=== PATIENT | female | born 1970 | race Caucasian/White ===

== ENCOUNTER 2019-06-25 14:21 | Outpatient (CLI) | payer BC, SELFPAY ==
--- NOTE | ~2019-06-25 | XR_ITS ---
XR shoulder RT min 2V DATE: 06/25/2019 14:51 INDICATION: Right shoulder pain TECHNIQUE: 4 views COMPARISON: None FINDINGS: No fracture or dislocation, periosteal reaction or bone destruction or abnormal soft tissue calcification. IMPRESSION: Negative Reviewed, dictated and finalized at location A. IMPRESSION: Negative
== END 2019-06-25 14:22 | disposition home or self-care (01) ==
PROVIDERS: PCP Internal Medicine; Visit Provider Physician Assistant
DX: M25.511 Pain in right shoulder (principal)
CPT/HCPCS: 73030

== ENCOUNTER 2019-08-18 08:00 | Outpatient (RCR) | payer BC, SELFPAY ==
--- NOTE | 2019-07-07 10:55 | PTOPEVAL ---
Thank you for referring John Proctor to [facility]. Please review, sign, date and return this plan of care AYAN. Pt referred to therapy due to right shoulder pain and limitations. She demonstrates decreased shoulder motion, shoulder and scapular weakness, and limitations with daily activities. She requires additional skilled PT services to improve UE impairments. Recommend additional PT 2x/wk x 5 wk to achieve therapy goals. I agree with and certify that the following plan of care is medically necessary. Referring Physician Date Attending Provider: Wilmer Chamberlain MD *PT Outpatient Evaluation Start: 07/07/19 09:43 Freq: Status: Active Protocol: Document 07/07/19 09:43 ALBERT (Rec: 07/07/19 10:08 ALBERT [id number]) Therapy Assessment Status Assessment Status Assessment Status Evaluation Outpatient Past Medical History Past Medical History Source of Past Medical History Patient Cardiovascular History Hx Hypertension Yes Evaluation Information Problem Diagnosis subacromial impingement right shoulder Onset 2 years Cause unknown Subjective Information She started having shoulder Query Text:As Reported By Patient/ pain 2 years ago, but improved Family without treatment. She started to have limited range 2 months ago. MD thinks it is tendonities. She reports limitation with typing, reaching in all directions. States the right arm is weaker than the left. She received an injection on with improve pain and tolerance with activities. She now report increased elbow pain. She has to perform typing and lifting at work. Amount of weight varies up to 50#. Prior to injection she had problems with donning/ doffing clothes. She prefers to sleep in her right shoulder or stomach. She wakes with soreness/pain. She does not use a pillow with the right UE. She does not perform a regular fitness program. Does not use ice, heat or medication at home. Diagnostic Tests X-Rays For This Problem Yes: negative Prev
--- NOTE | 2019-08-18 08:47 | PTOPEVAL ---
Thank you for referring John Proctor to [facility]. Please review, sign, date and return this plan of care AYAN. John has received 9 therapy visits to address UE impairments. She is able to perform all daily activities without limitations. She has normal shoulder range and improved UE strength. She performs her HEP indep. All therapy goals have been achieved. DC skilled therapy at this time. I agree with and certify that the following plan of care is medically necessary. Referring Physician Date Attending Provider: Wilmer Chamberlain MD PT re-assessment/Discharge Note *PT Outpatient Evaluation Start: 07/07/19 09:43 Freq: Status: Active Protocol: Document 08/18/19 07:59 CAP (Rec: 08/18/19 08:21 CAP [email or web address]) Therapy Assessment Status Assessment Status Assessment Status Re-evaluation Outpatient Past Medical History Past Medical History Source of Past Medical History Patient Cardiovascular History Hx Hypertension Yes Evaluation Information Problem Diagnosis subacromial impingement right shoulder Onset 2 years Cause unknown Subjective Information She denies any limitations Query Text:As Reported By Patient/ with UE use for typing, Family reaching in all directions or carrying objects with UE. Denies problems with sleeping, household activities, or sleeping. Pain Assessment Timing of Pain Assessment Timing of Pain Assessment Re-assessment Pain Scale Pain Scale Used Numeric (1 - 10) Self Report Pain Assessment Right Shoulder(s) Reported Pain Level 0 Greatest Pain Intensity 0 Pain Score Pain Score 0: Self Report Upper Extremity Range of Motion Scapular/ Shoulder Range of Motion Left Shoulder Flexion - Active 180 Shoulder Extension - Active 55 Shoulder Abduction - Active 180 Shoulder Medial Rotation - Passive 90 Shoulder Medial Rotation - Active T6 Query Text:Reach Behind the Back Shoulder Lateral Rotation - Active 90 Shoulder Lateral Rotation - Active T2 Query Text:Reach Behind the Head Right Shoulder Flexion - Active 180 Shoulder Extension - Active 50 Shoulder Abduction - Active 180 Shoulder Medial Rotation - Active 90 Shoulder Medial Rotation - Active T7 Query Text:Reach Behind the Back Shoulder Lateral Rotation - Active 90 Shoulder Lateral Rotation - Active T2 Query Text:Reach Behind the Head Upper Extremity Muscle Strength Testing Scapular/Shoulder Left Shoulder Elevation - Upper Trapezius 5 Normal Scapular Retraction - Middle Trapezius 3+ Fair + Scapular Retraction - Lower Trapezius 3 Fair Shoulder Flexion Stren
== END 2019-08-19 13:09 | disposition home or self-care (01) ==
LOC: ANHPT 08:00
PROVIDERS: PCP Internal Medicine; Visit Provider Orthopaedic Surgery
DX: M75.81 Other shoulder lesions, right shoulder (principal)
CPT/HCPCS: 97035; 97110; 97140; 97161

== ENCOUNTER 2020-02-04 14:34 | Outpatient (CLI) | payer BC, SELFPAY ==
--- NOTE | ~2020-02-04 | MM_ITS ---
EXAMINATION: MM screening jonathan BI w ysoi HISTORY: Screening TECHNIQUE: Craniocaudal and mediolateral oblique 3-D tomosynthesis images were obtained and synthetic 2-D images were generated. CAD analysis was submitted and interpreted. COMPARISON: Comparison to multiple prior studies sequentially, with oldest reviewed study dated 12/06. BREAST PARENCHYMAL COMPOSITION: There are scattered areas of fibroglandular density. FINDINGS: There are developing asymmetries in the lower inner quadrant of the right breast. The left breast is stable without evidence for malignancy. IMPRESSION: 1. Developing right breast asymmetries. 2. Additional mammographic views and possible breast ultrasound are recommended. BI-RADS Category 0: Incomplete: Needs additional imaging evaluation. Reviewed, dictated and finalized at location A. S CURVATURE GAUGER IMPRESSION: 1. Developing right breast asymmetries. 2. Additional mammographic views and possible breast ultrasound are recommended . BI-RADS Category 0: Incomplete: Needs additional imaging evaluation.
== END 2020-02-04 14:35 | disposition home or self-care (01) ==
PROVIDERS: PCP Physician Assistant; Visit Provider Obstetrics & Gynecology
DX: Z12.31 Encounter for screening mammogram for malignant neoplasm of breast (principal); R92.8 Other abnormal and inconclusive findings on diagnostic imaging of breast
CPT/HCPCS: 77063; 77067

== ENCOUNTER 2020-03-04 12:17 | Outpatient (CLI) | payer BC, SELFPAY ==
--- NOTE | ~2020-03-04 | MMUS_ITS ---
EXAMINATION: MM diagnostic mammo unilat RT, US breast RT limited HISTORY: Follow-up right breast asymmetry TECHNIQUE: Additional 3-D tomosynthesis images of the right breast were performed and synthetic 2-D i mages were generated. CAD analysis was submitted and interpreted. High resolution Limited right breas t ultrasound was performed. COMPARISON: Comparison to multiple prior studies sequentially, with oldest reviewed study dated 03/2013. BREAST PARENCHYMAL COMPOSITION: Breast composed of scattered areas of fibroglandular density FINDINGS: MAMMOGRAPHIC FINDINGS: Focal asymmetry compresses with spot views, compatible with superimposed fibroglandular tissue. There are no suspicious masses, calcifications or architectural distortion in the right breast to suggest malignancy. ULTRASOUND: Limited right breast ultrasound: Normal heterogeneous echotexture without focal solid or cystic mass. IMPRESSION: 1. No evidence for malignancy in the right breast. 2. Routine yearly screening mammogram and regular clinical breast examination are recommended. BI-RADS Category 1: Negative Reviewed, dictated and finalized at location A. N RESOURCES SERVICES SPECIALIST IMPRESSION: 1. No evidence for malignancy in the right breast. 2. Routine yearly screening mammogram and regular clinical breast examination a re recommended. BI-RADS Category 1: Negative
== END 2020-03-04 12:18 | disposition home or self-care (01) ==
LOC: ANHIMG 12:19
PROVIDERS: PCP Physician Assistant; Visit Provider Obstetrics & Gynecology
DX: R92.8 Other abnormal and inconclusive findings on diagnostic imaging of breast (principal)
CPT/HCPCS: 76642; 77065

== ENCOUNTER → 2020-03-16 03:40 | Outpatient (CLI) | payer BC, SELFPAY ==
[2020-03-17 18:18] LABS: SARS-CoV-2 RNA PCR Negative
== END ==
PROVIDERS: Internal Medicine Gastroenterology; PCP Physician Assistant; Visit Provider Obstetrics & Gynecology
DX: Z01.812 Encounter for preprocedural laboratory examination (principal); Z20.822 Contact with and (suspected) exposure to COVID-19
CPT/HCPCS: C9803; U0003; U0005

== ENCOUNTER → 2020-03-16 09:14 | Outpatient (CLI) | payer BC, SELFPAY ==
--- NOTE | ~2020-03-16 | MR_ITS ---
EXAMINATION: MR shoulder RT wo con DATE: 03/16/2020 09:55 INDICATION: Right shoulder pain TECHNIQUE: Magnetic resonance imaging (MRI) of the right shoulder was performed without intravenous c ontrast. Sequences included axial PD-weighted FS FSE, coronal oblique PD-weighted FS FSE, coronal obl ique T2-weighted FS FSE, sagittal PD-weighted FS FSE, and sagittal T1-weighted SE. COMPARISON: None. FINDINGS: Coracoacromial arch: The acromion undersurface is curved in morphology (type II). The coracoacromial ligament is normal. M ild acromioclavicular osteoarthritis. Rotator cuff: Mild supraspinatus and infraspinatus tendinopathy. Partial-thickness intrasubstance tear along the ju nction of the superior and middle facet footplates of the conjoined portion of the tendons. The tear measures approximately 8 mm AP and involves between 1/2-2/3 of the tendon thickness. The teres minor tendon is normal. Mild subscapularis tendinopathy without discrete tear. Normal rotator cuff muscle b ulk and signal. Biceps tendon, glenoid labrum and glenohumeral cartilage: Long head of the biceps tendon is normal. There is a tear of the 10:30-12:00 position of the posterio r superior glenoid labrum. Glenohumeral cartilage is normal. Fluid: Minimal glenohumeral joint effusion at the axillary recess with proportional extension of a very smal l amount of fluid along the long head biceps tendon sheath. No loose osteochondral bodies. Small amou nt of fluid in the subacromial/subdeltoid bursa consistent with mild bursitis. Bones: Is increased proportion of red marrow reexpansion. Marrow signal is otherwise unremarkable with no fr acture or pathologic marrow replacing process. IMPRESSION: 1. Small moderate severity partial-thickness intrasubstance tear along the greater tuberosity footpla te of the conjoined portion of the supraspinatus and infraspinatus tendons. 2. SLAP tear at the posterior superior glenoid labrum. 3. Mild subacromial/subdeltoid bursitis. Line 4. Mild acromioclavicular osteoarthritis. Reviewed, dictated and finalized at location A. INTMENT SCHEDULER IMPRESSION: 1. Small moderate severity partial-thickness intrasubstance tear along the grea ter tuberosity footplate of the conjoined portion of the supraspinatus and infr aspinatus tendons. 2. SLAP tear at the posterior superior glenoid labrum. 3. Mild subacromial/subdeltoid bursitis. Line 4. Mild acromioclavicular osteoarthritis.
== END ==
PROVIDERS: PCP Internal Medicine; Visit Provider Orthopaedic Surgery
DX: M19.011 Primary osteoarthritis, right shoulder (principal); M75.51 Bursitis of right shoulder; S43.431A Superior glenoid labrum lesion of right shoulder, initial encounter; X58.XXXA Exposure to other specified factors, initial encounter
CPT/HCPCS: 73221

== ENCOUNTER 2020-03-17 08:03 | Outpatient (CLI) | payer BC, SELFPAY ==
--- NOTE | 2020-03-17 08:04 | ECG_ITS ---
Measurements Intervals [place] Rate: 71 P: -5 GA: 142 QRS: 3 QRSD: 82 T: 1 QT: 372 QTc: 406 Interpretive Statements SINUS RHYTHM INCOMPLETE RIGHT BUNDLE BRANCH BLOCK DELAYED PRECORDIAL R/S TRANSITION LOW QRS VOLTAGE IN PRECORDIAL LEADS BORDERLINE T WAVE ABNORMALITY- ANT/INF LEADS BASELINE ARTIFACT- I, II, III, AVR, AVF, V3 BORDERLINE ECG Electronically Signed On 03-17-2020 8:25:07 [employer] by Maurizio Mcfadden D.O.
[2020-03-17 08:26] LABS: Hematocrit 35.8 % (37.0-47.0); Hemoglobin 10.9 g/dL (12.0-15.0)
== END 2020-03-17 08:04 | disposition home or self-care (01) ==
LOC: ANHSURGERY 08:04
PROVIDERS: Anesthesiology; PCP Internal Medicine; Visit Provider Obstetrics & Gynecology
DX: D64.9 Anemia, unspecified (principal); Z53.31 Laparoscopic surgical procedure converted to open procedure; I10 Essential (primary) hypertension; Z01.818 Encounter for other preprocedural examination; I45.10 Unspecified right bundle-branch block
CPT/HCPCS: 36415; 85014; 85018; 86850; 86900; 86901; 93005

== ENCOUNTER 2020-03-19 01:21 | Day surgery (SDC) | payer BC, SELFPAY ==
[2020-03-15 18:49] VITALS: BMI 32.7
--- NOTE | 2020-03-16 14:55 | PM.IMHP ---
H&P: HPI History of Present Illness Date/Time: 03/16/20 14:55 Chief Complaint: r ov mass Narrative: John Proctor is a 49 year old female status post 2 hysterectomy and bilateral tubal ligation admitted for laparoscopic RSO risks of is reviewed and for Review of Systems Review of Systems: All systems reviewed & are unremarkable except as noted in HPI and below PMFSH Past Medical History Medical History Hypertension Surgical History Surgical History H/O tubal ligation H/O: hysterectomy History of cholecystectomy Family History Family History Grandparent Carcinoma of colon Family history of elevated blood lipids Mother Diabetes mellitus Sibling Patient's brother is in good health Father Family history of cardiovascular disease Social History Social History Smoking status: Never smoker Second hand tobacco smoke exposure: No Alcohol intake: current Substance use: never Substance use type: does not use Additional living arrangements comments: spouse and children Additional occupation/education comments: [employer] Gender identity (if verbalized by the patient): Female Spiritual care concerns: No Meds Home Medications and Allergies Home Medications Medication Instructions Recorded Confirmed Type azelastine 0.15 % (205.5 mcg) 2 spray NASAL DAILY PRN 06/24/19 03/15/20 History nasal spray fexofenadine-pseudoephedrine ER 1 tablet PO DAILY PRN 06/24/19 03/15/20 History 180 mg-240 mg tablet,ext.release 24 hr fluticasone propionate 50 2 spray NASAL DAILY PRN 06/24/19 03/15/20 History mcg/actuation nasal spray,suspension nebivolol 10 mg tablet See Rx Instructions .ROUTE 12/16/19 03/15/20 Rx .COMPLEX #90 tablet ferrous sulfate 325 mg (65 mg 325 mg PO BID #60 tablet 01/26/20 03/15/20 Rx iron) tablet sodium,potassium,mag sulfates See Rx Instructions .ROUTE 02/27/20 03/03/20 Rx [Suprep Bowel Prep Kit] .COMPLEX #1 ml Allergies Allergy/AdvReac Type Severity Reaction Status Date / Time No Known Allergies Allergy Verified 02/10/20 09:05 Exam Const: General: no acute distress Eyes: General: appearance normal, both eyes and all related structures Neck: Neck: supple and no JVD Thyroid: thyroid normal Resp: Effort & Inspection: normal respiratory effort Auscultation: clear to auscultation bilaterally Cardio: Rate: regular rate Rhythm: regular rhythm GI: Inspection: non-distended GI Palp: Yes Soft to palpation, No Tenderness to palpation present (GI) and No Guarding due to palpation present (GI) Auscultation: normal bowel sounds : General: Yes bladder normal to inspection Speculum Exam - Vagina: normal appearance of the vagina Speculum Exam - Cervix: Cervix absent Bimanual exam- vagina & uterus: uterus absent Bimanual Exam- Adnexa, other: Adnexal mass present on the right tender Skin: General skin exam: no rashes or lesions noted Extrem: General: normal to inspection and no edema Psych: Mental Status: mental status grossly normal Affect: normal affect Assessment and Plan Additional Plan impression: Complex right ovarian cyst Plan: Laparoscopic right salpingo-oophorectomy
[2020-03-19] VITALS (9 sets, daily range): BP systolic 119–132; BP diastolic 77–85; PULSE 70–83; RESP 15–18; TEMP 36.2–36.4; O2SAT 91–100; BMI 32.1
--- NOTE | 2020-03-19 06:22 | WPDHPUPDATE1 ---
History and Physical Update Update Date/Time: 03/19/20 06:22 History and Physical has been reviewed, including an updated exam of the patient. There are NO changes in the patient's condition. Risks, benefits, and alternatives have been discussed and questions answered. Patient agrees to proceed with procedure.
[2020-03-19] MEDS: LACTATED RINGERS 1,000 ML 30 ML IV CONT ×2 (10:03→13:28)
[2020-03-19] MEDS: ACETAMINOPHEN 500 MG TABLET 1000 MG PO (10:05)
[2020-03-19] MEDS: KETOROLAC 15 MG/ML VIAL (*BKC) IV PUSH (10:05)
--- NOTE | 2020-03-19 10:53 | WPDANESEPPF ---
Anes - Initial Pre Proc Eval Procedure: Operation Date: 03/19/20 11:30 Proposed Procedures p Laparoscopic Right Salpingo Oophorectomy - Tylor Stauffer MD Date/Time: 03/19/20 10:53 Surgeon: Tylor Stauffer MD Pre Op Diagnosis: right ovarian cyst, pelvic pain Patient Data Age: 49 Gender: F Height: 5 ft 4 in Weight: 85 kg Last Vital Signs Temp 97.5 F L 03/19/20 10:11 Pulse 71 03/19/20 10:11 Resp 18 03/19/20 10:11 BP 122/81 03/19/20 10:11 Pulse Ox 100 03/19/20 10:11 Allergies Allergy/AdvReac Type Severity Reaction Status Date / Time No Known Allergies Allergy Verified 03/19/20 09:52 Home Medications Medication Instructions Recorded Confirmed Type azelastine 0.15 % (205.5 mcg) 2 spray NASAL DAILY PRN 06/24/19 03/19/20 History nasal spray fexofenadine-pseudoephedrine ER 1 tablet PO DAILY PRN 06/24/19 03/19/20 History 180 mg-240 mg tablet,ext.release 24 hr fluticasone propionate 50 2 spray NASAL DAILY PRN 06/24/19 03/19/20 History mcg/actuation nasal spray,suspension nebivolol 10 mg tablet See Rx Instructions .ROUTE 12/16/19 03/19/20 Rx .COMPLEX #90 tablet ferrous sulfate 325 mg (65 mg 325 mg PO BID #60 tablet 01/26/20 03/19/20 Rx iron) tablet sodium,potassium,mag sulfates See Rx Instructions .ROUTE 02/27/20 03/03/20 Rx [Suprep Bowel Prep Kit] .COMPLEX #1 ml Patient hx anesthesia problems: none Family hx anesthesia problems: none PMFSH Past Medical History Medical History (Updated 03/19/20 @ 10:53 by Marvel Zaman MD) Anemia Hypertension Migraine Surgical History Surgical History H/O tubal ligation H/O: hysterectomy History of cholecystectomy Family History Family History Grandparent Carcinoma of colon Family history of elevated blood lipids Mother Diabetes mellitus Sibling Patient's brother is in good health Father Family history of cardiovascular disease Social History Social History Smoking status: Never smoker Second hand tobacco smoke exposure: No Alcohol intake: current Substance use: never Substance use type: does not use Living arrangements: with family Additional living arrangements comments: spouse and children Additional occupation/education comments: [employer] Gender identity (if verbalized by the patient): Female Sexual Orientation (if Verbalized by the Patient): Straight or Heterosexual Spiritual care concerns: No Anes - Eval Final PreProcedure Day of Procedure 03/19/20 10:53 Patient weight: obese Heart: regular rate and rhythm Lungs: clear to auscultation Airway: Mallampati scale class III Neurological: alert and oriented Last oral intake: >/= 8 hours ASA classification: III Emergent: no Anesthetic plan: proceed Anesthesia type and monitoring: general ETT and standard monitoring Informed Consent: The patient's anesthetic plan and its attendant risks and benefits were discussed with the patient/family/POA. Questions were solicited and answers provided to the satisfaction of the patient/family/POA.
--- NOTE | 2020-03-19 11:39 | SUR.PREOP ---
Discussed delay with patient. Up to bathroom.
--- NOTE | 2020-03-19 13:17 | PM.PROC ---
Procedure Note - Detailed Date of procedure: 03/19/20 Pre-op diagnosis: right ovarian cyst, pelvic pain Surgeon: Tylor Stauffer MD Postop diagnosis: Right ovarian cyst/pelvic pain/endometriosis Procedure: Laparoscopic RSO/destruction of endometriosis/lysis of adhesions Anesthesia: General endotracheal EBL: 25cc Complications: None Findings: Absent uterus. Normal-appearing left ovary along. Moderate size right ovarian cyst. Multiple areas of powder burn endometriosis are Description procedure: The patient was prepped and draped in the sterile fashion placed in the dorsal lithotomy position. Under excellent general trach anesthesia weighted speculum placed posterior fornix vagina. Sponge stick was placed in the bladder drained of clear urine weighted speculum was removed and the gloves were changed. A supraumbilical incision made the Veress needle passed in the abdomen. The abdomen was filled with CO2 gas to 15mm. A 5mm trocar advanced under direct visualization assuring no injury. The patient placed in Trendelenburg and a suprapubic incision made. The 5mm trocar advanced under direct visualization. The right lower quadrant incision made and at 10mm trocar advanced under direct visualization assuring no injury. The above findings were seen. The adhesions along the vaginal cuff were sharply dissected using Endo Allen. Multiple areas of endometriosis were seen and using 35 w per 2nd monopolar cautery each was touched and burned after photo documentation of a taken. The infundibulopelvic on the right was skeletonized. This was clamped, burned, cut with the LigaSure. This was placed in an Endo-Catch and removed through the right quadrant. Irrigation undertaken until clear and blood loss was estimated 25cc. All pedicles appeared hemostatic. The lower sites removed. The gas removed from the abdomen. The incisions closed with 4 Monocryl and glue. The patient was awakened. All sponge, needle, instrument counts were correct. There were no immediate complications
[2020-03-19] MEDS: fentaNYL CITRATE INJ (*CRX) 100 MCG/2 ML VIAL 25 MCG IV PUSH ×4 (13:46→14:18)
[2020-03-19] MEDS: oxyCODONE HCL (*CRX) 5 MG TAB IR PO (14:55)
== END 2020-03-19 15:30 | disposition home or self-care (01) ==
PROVIDERS: PCP Internal Medicine; Visit Provider Obstetrics & Gynecology
PROC: (CPT 49320; principal; 2020-03-19 11:30)
DX: N83.01 Follicular cyst of right ovary (principal); R10.2 Pelvic and perineal pain; N80.3 Endometriosis of pelvic peritoneum; N73.6 Female pelvic peritoneal adhesions (postinfective); D64.9 Anemia, unspecified; I10 Essential (primary) hypertension; E66.9 Obesity, unspecified; Z68.32 Body mass index [BMI] 32.0-32.9, adult
CPT/HCPCS: 58661; 58662; 88305; A9270; J0330; J1100; J1885; J2250; J2405; J2704; J3010; J7030; J7120

== ENCOUNTER → 2020-03-30 03:25 | Outpatient (CLI) | payer BC, SELFPAY ==
[2020-03-30 20:35] LABS: SARS-CoV-2 RNA PCR Negative
== END ==
PROVIDERS: Obstetrics & Gynecology; PCP Internal Medicine; Visit Provider Internal Medicine Gastroenterology
DX: Z01.812 Encounter for preprocedural laboratory examination (principal); Z20.822 Contact with and (suspected) exposure to COVID-19
CPT/HCPCS: C9803; U0003; U0005

== ENCOUNTER 2020-04-02 01:12 | Day surgery (SDC) | payer BC, SELFPAY ==
[2020-03-03 15:11] VITALS: BMI 33.3
--- NOTE | 2020-04-01 09:45 | WPDANESEPPF ---
Anes - Initial Pre Proc Eval Procedure: Operation Date: 04/02/20 09:00 Proposed Procedures p Esophagogastroduodenoscopy & Colonoscopy - Ronald Benton MD Date/Time: 04/01/20 09:45 Surgeon: Ronald Benton MD Pre Op Diagnosis: anemia Patient Data Age: 49 Gender: F Height: 1.63 m Weight: 88 kg Allergies Allergy/AdvReac Type Severity Reaction Status Date / Time No Known Allergies Allergy Verified 04/02/20 07:43 Home Medications Medication Instructions Recorded Confirmed Type azelastine 0.15 % (205.5 mcg) 2 spray NASAL DAILY PRN 06/24/19 03/23/20 History nasal spray fexofenadine-pseudoephedrine ER 1 tablet PO DAILY PRN 06/24/19 03/23/20 History 180 mg-240 mg tablet,ext.release 24 hr fluticasone propionate 50 2 spray NASAL DAILY PRN 06/24/19 03/23/20 History mcg/actuation nasal spray,suspension nebivolol 10 mg tablet See Rx Instructions .ROUTE 12/16/19 04/02/20 Rx .COMPLEX #90 tablet ferrous sulfate 325 mg (65 mg 325 mg PO BID #60 tablet 01/26/20 03/23/20 Rx iron) tablet hydrocodone-acetaminophen 1 tablet PO Q6H PRN #30 tablet 03/19/20 04/02/20 Rx Patient hx anesthesia problems: none Family hx anesthesia problems: none PMFSH Past Medical History Medical History Anemia Hypertension Migraine Surgical History Surgical History H/O tubal ligation H/O: hysterectomy History of cholecystectomy Family History Family History Grandparent Carcinoma of colon Family history of elevated blood lipids Mother Diabetes mellitus Sibling Patient's brother is in good health Father Family history of cardiovascular disease Social History Social History Smoking status: Never smoker Second hand tobacco smoke exposure: No Alcohol intake: current Substance use: never Substance use type: does not use Living arrangements: with family Additional living arrangements comments: spouse and children Additional occupation/education comments: [employer] Gender identity (if verbalized by the patient): Female Spiritual care concerns: No Anes - Eval Final PreProcedure Day of Procedure 04/01/20 09:45 Patient weight: obese Heart: regular rate and rhythm Lungs: clear to auscultation and normal air movement Airway: Mallampati scale class II Neurological: alert and oriented Last oral intake: >/= 8 hours ASA classification: III Emergent: no Anesthetic plan: proceed Anesthesia type and monitoring: general GIVS and standard monitoring Informed Consent: The patient's anesthetic plan and its attendant risks and benefits were discussed with the patient/family/POA. Questions were solicited and answers provided to the satisfaction of the patient/family/POA.
[2020-04-02 07:44] VITALS: BP 120/81; PULSE 73; RESP 16; TEMP 36.6; O2SAT 98
[2020-04-02] MEDS: LACTATED RINGERS 1,000 ML 150 ML IV CONT (07:47)
--- NOTE | 2020-04-02 09:09 | PM.HPGS ---
History of Present Illness History of Present Illness Consent: Risks, benefits, and alternatives have been discussed and questions answered. Patient agrees to proceed with procedure. Chief complaint: anemia Narrative: John Proctor is a 49 year old female with AKILA (no overt gib, and remote history of hysterectomy) using iron now, never colonoscopy. Had EGD more ~ 15 years ago. Review of Systems Constitutional: Constitutional: Denies headache(s) and Denies weakness Eyes: Eyes: Denies blurry vision ENT: Reports Normal hearing present, Denies headache(s) and Denies neck pain Cardiovascular: Cardiovascular: Denies chest pain and Denies dyspnea Respiratory: Respiratory: Denies dyspnea Gastrointestinal: Gastrointestinal: Reports no additional gastrointestinal complaints Genitourinary: Genitourinary: Denies dysuria Musculoskeletal: Musculoskeletal: Denies neck pain Integumentary/Breasts: Skin/Breast: Denies dry skin Neurologic: Reports Normal hearing present, Denies headache(s) and Denies weakness Psychiatric: Psychiatric: Denies anxiety Endocrine: Endocrine: Denies change in body appearance Hematologic/Lymphatic: Hematologic/Lymphatic: Denies easy bleeding Allergic/Immunologic: Allergic/Immunologic: Denies urticaria PMFSH Past Medical History Medical History Anemia Hypertension Migraine Surgical History Surgical History H/O tubal ligation H/O: hysterectomy History of cholecystectomy Family History Family History Grandparent Carcinoma of colon Family history of elevated blood lipids Mother Diabetes mellitus Sibling Patient's brother is in good health Father Family history of cardiovascular disease Social History Social History Smoking status: Never smoker Second hand tobacco smoke exposure: No Alcohol intake: current Substance use: never Substance use type: does not use Living arrangements: with family Additional living arrangements comments: spouse and children Additional occupation/education comments: [employer] Gender identity (if verbalized by the patient): Female Spiritual care concerns: No Meds Home Medications and Allergies Home Medications Medication Instructions Recorded Confirmed Type azelastine 0.15 % (205.5 mcg) 2 spray NASAL DAILY PRN 06/24/19 03/23/20 History nasal spray fexofenadine-pseudoephedrine ER 1 tablet PO DAILY PRN 06/24/19 03/23/20 History 180 mg-240 mg tablet,ext.release 24 hr fluticasone propionate 50 2 spray NASAL DAILY PRN 06/24/19 03/23/20 History mcg/actuation nasal spray,suspension nebivolol 10 mg tablet See Rx Instructions .ROUTE 12/16/19 04/02/20 Rx .COMPLEX #90 tablet ferrous sulfate 325 mg (65 mg 325 mg PO BID #60 tablet 01/26/20 03/23/20 Rx iron) tablet hydrocodone-acetaminophen 1 tablet PO Q6H PRN #30 tablet 03/19/20 04/02/20 Rx Allergies Allergy/AdvReac Type Severity Reaction Status Date / Time No Known Allergies Allergy Verified 04/02/20 07:43 Vital Signs Vital Signs - 24 hr 04/02/20 07:44 Temperature 97.9 F Pulse Rate 73 Respiratory Rate 16 Blood Pressure 120/81 Pulse Oximetry 98 Exam Const: General: comfortable and no acute distress HENMT: General nose exam: Normal nares present Eyes: General: appearance normal, both eyes and all related structures Neck: Neck: no JVD Resp: Auscultation: clear to auscultation bilaterally Cardio: Rate: regular rate Rhythm: regular rhythm GI: Inspection: non-distended GI Palp: Yes Soft to palpation Skin: General skin exam: normal color Neuro: General: gait normal Speech: normal speech Extrem: General: normal to inspection Psych: Mental Status: mental status grossly normal Assessment and Plan
--- NOTE | 2020-04-02 09:30 | SUR.OPER ---
EGD ENDED 923, COLONOSCOPY STARTED 928
[2020-04-02 09:42] VITALS: BP 91/53; PULSE 65; RESP 19; O2SAT 99
[2020-04-02 09:52] VITALS: BP 105/61; PULSE 61; RESP 18; O2SAT 100
[2020-04-02 10:02] VITALS: BP 111/74; PULSE 62; RESP 18; O2SAT 100
== END 2020-04-02 10:05 | disposition home or self-care (01) ==
PROVIDERS: PCP Internal Medicine; Visit Provider Internal Medicine Gastroenterology
PROC: 0DJ08ZZ Inspection of Upper Intestinal Tract, Via Natural or Artificial Opening Endoscopic (ICD-10-PCS; CPT 43235; principal; 2020-04-02 09:00)
DX: D64.9 Anemia, unspecified (principal); K57.30 Diverticulosis of large intestine without perforation or abscess without bleeding; K44.9 Diaphragmatic hernia without obstruction or gangrene; K63.5 Polyp of colon; K64.8 Other hemorrhoids; K29.50 Unspecified chronic gastritis without bleeding; I10 Essential (primary) hypertension; E66.9 Obesity, unspecified; Z68.32 Body mass index [BMI] 32.0-32.9, adult
CPT/HCPCS: 43239; 45385; 88305; J2001; J2704; J7120

== ENCOUNTER → 2020-04-09 01:59 | Outpatient (CLI) | payer BC, SELFPAY ==
[2020-04-10 08:28] LABS: SARS-CoV-2 RNA PCR Negative
== END ==
PROVIDERS: PCP Internal Medicine; Visit Provider Orthopaedic Surgery
DX: Z01.812 Encounter for preprocedural laboratory examination (principal); Z20.822 Contact with and (suspected) exposure to COVID-19
CPT/HCPCS: C9803; U0003; U0005

== ENCOUNTER 2020-04-12 01:29 | Day surgery (SDC) | payer BC, SELFPAY ==
[2020-04-07 14:17] VITALS: BMI 32.5
[2020-04-12] VITALS (9 sets, daily range): BP systolic 115–127; BP diastolic 72–83; PULSE 58–72; RESP 8–20; TEMP 36.2–36.8; O2SAT 99–100
[2020-04-12] MEDS: ACETAMINOPHEN 500 MG TABLET 1000 MG PO (08:13)
[2020-04-12] MEDS: LACTATED RINGERS 1,000 ML 30 ML IV CONT ×2 (08:26→11:17)
[2020-04-12] MEDS: KETOROLAC 15 MG/ML VIAL (*BKC) IV PUSH (08:27)
--- NOTE | 2020-04-12 08:55 | P.PNAN_ITS ---
Anes - Initial Pre Proc Eval Procedure: Operation Date: 04/12/20 09:30 Proposed Procedures p Right Rotator Cuff Repair With Distal Clavicle Excision - Wilmer Chamberlain MD Date/Time: 04/12/20 08:55 Surgeon: Wilmer Chamberlain MD Pre Op Diagnosis: Right Rotator Cuff Tear, AC Arthritis Patient Data Age: 49 Gender: F Height: 5 ft 4 in Weight: 85.4 kg Last Vital Signs Temp 36.8 C 04/12/20 07:55 Pulse 64 04/12/20 07:55 Resp 16 04/12/20 07:55 BP 123/78 04/12/20 07:55 Pulse Ox 100 04/12/20 07:55 Allergies Allergy/AdvReac Type Severity Reaction Status Date / Time No Known Allergies Allergy Verified 04/12/20 08:09 Home Medications Medication Instructions Recorded Confirmed Type azelastine 205.5 mcg (0.15 %) 2 spray NASAL DAILY PRN 06/24/19 04/12/20 History nasal spray fexofenadine-pseudoephedrine ER 1 tablet PO DAILY PRN 06/24/19 04/12/20 History 180 mg-240 mg tablet,ext.release 24 hr fluticasone propionate 50 2 spray NASAL DAILY PRN 06/24/19 04/12/20 History mcg/actuation nasal spray,suspension ferrous sulfate 325 mg (65 mg 325 mg PO BID #60 tablet 01/26/20 04/12/20 Rx iron) tablet Bystolic 10 mg PO QAM 04/07/20 04/12/20 History Patient hx anesthesia problems: none and other (slow to awaken) Family hx anesthesia problems: none PMFSH Past Medical History Medical History Anemia Hypertension Iron deficiency anemia Migraine Surgical History Surgical History H/O tubal ligation H/O: hysterectomy History of cholecystectomy Family History Family History Grandparent Carcinoma of colon Family history of elevated blood lipids Mother Diabetes mellitus Sibling Patient's brother is in good health Father Family history of cardiovascular disease Social History Social History Smoking status: Never smoker Second hand tobacco smoke exposure: No Alcohol intake: current Alcohol use details: COUPLE DRINKS/MONTH Substance use: never Substance use type: does not use Living arrangements: with family Additional living arrangements comments: AND CHILDREN Additional occupation/education comments: [employer] Gender identity (if verbalized by the patient): Female Spiritual care concerns: No Anes - Eval Final PreProcedure Day of Procedure 04/12/20 08:55 Patient weight: obese Heart: regular rate and rhythm Lungs: clear to auscultation Airway: Mallampati scale class II Neurological: alert and oriented Last oral intake: >/= 8 hours ASA classification: III Emergent: no Anesthetic plan: proceed Anesthesia type and monitoring: general ETT and standard monitoring Informed Consent: The patient's anesthetic plan and its attendant risks and bene fits were discussed with the patient/family/POA. Questions were solicited and answers provided to the satisfaction of the patient/family/POA.
--- NOTE | 2020-04-12 09:15 | WPDHPUPDATE1 ---
History and Physical Update Update Date/Time: 04/12/20 09:15 History and Physical has been reviewed, including an updated exam of the patient. There are NO changes in the patient's condition. Risks, benefits, and alternatives have been discussed and questions answered. Patient agrees to proceed with procedure.
[2020-04-12] MEDS: ceFAZolin 2 GM/D5W 50 ML 2 GM/50 ML BAG IVPB (09:50)
--- NOTE | 2020-04-12 09:53 | WPDANESPNB ---
Anes - Peripheral Nerve Block Date/Time: 04/12/20 09:53 I have discussed with the patient/family/POA the placement of a peripheral nerve block for post-operative pain management, including associated risks, benefits, complications, and side effects. Alternative methods of post-operative analgesia were detailed. Questions were solicited and answers provided to the satisfaction of the patient/family/POA. Time-Out: A pre-procedural Time-Out was completed immediately before starting the procedure and confirmed: Patient Identification, Site, Procedure, Patient Position and the Availability of Requisite Equipment. Clinical Indications: Acute post-operative pain management requested by the operative surgeon. Nerve Block Insertion Note Anes-nerve block: interscalene right Patient position: other (sitting) Skin prep: chlorhexidine Needle: 22 gauge, stimulating, insulated echogenic needle. Needle length: 50 mm Technique: nerve stimulation lost at (mA) (0.28) and ultrasound Technique comment: mid 2mg fent 100mcg Injectate: bupivacaine 0.5% with epi 5 mcg/ml (30ml) Observations: tolerated well Complications: none Procedure start time:: 945 Procedure end time:: 950
[2020-04-12] MEDS: BUPIVACAINE/EPINEPHRINE 0.25% 50 ML VIAL INFILTRATE (10:35)
--- NOTE | 2020-04-12 11:16 | P.OP_ITS ---
Procedure Note - Detailed Date of procedure: 04/12/20 Pre-op diagnosis: Right Rotator Cuff Tear, AC Arthritis Post-op diagnosis: same Procedure performed: right rotator cuff repair with distal clavicle excision Description of procedure: Patient was identified and proper site identified. In the preop holding area the anesthesia team performed a rightupper extremity block. she was then taken to the operating room and transferred to the or table taking care to pad the torso and extremities. After general anesthetic induction and intubation, she was put in a semi beach chair position in the usual manner for a right shoulder procedure. her head was secured taking care to neither rotate nor extend the head and neck. The right upper extremity was prepped and draped free in usual sterile fashion. The subcutaneous tissue in the area of the incision was injected with 10 cc of 0.25% Marcaine and epinephrine solution. An oblique anterior incision was made extending from the AC joint distally in line with the fibers of the deltoid. Subcutaneous tissue was sharply dissected down to the deltoid fascia. The deltoid was dissected off the anterior portion of the acromion in the distal end of the clavicle. A 2 cm split was made at the junction between the anterior and middle thirds of the deltoid. Using the microsagittal saw the last 8 mm of clavicle removed. The saw was also used to perform the acromioplasty and then the undersurface of the acromion was rasped smooth. thickened bursa was sharply debrided off of the rotator cuff. There was an area of intense erythema at the anterior most portion of the supraspinatus within virtually full-thickness tear. This was completed and the tendon edge freshened up. Tuberosity was prepared for the repair and using a 2. Ethibond suture passed through bony bridge a very kirk r epair was carried out. This was stable as the shoulder was taken through range of motion. Remainder rotator cuff was in excellent condition. The wound was irrigated with sterile NaCl solution. The deltoid was repaired back to the acromion with 2. Ethibond suture passed through bone and the remainder of the deltoid repair carried out with 2. Vicryl. Subcutaneous tissue was reapproximated with 2. Strata fix and then tissue adhesive used for the skin. Sterile dressing was applied. There were no known intraoperative complications, and perioperative antibiotics were administered. Anesthesia: GETA Surgeon: Wilmer Chamberlain MD Administration Physician: Christina Ulrich Estimated blood loss (mL): 20 Drains: No Packing: No Pathology: none sent Complications: No immediate complications Condition: stable Disposition: PACU
[2020-04-12] MEDS: ONDANSETRON INJ 4 MG/2 ML VIAL IV PUSH (11:49)
== END 2020-04-12 13:21 | disposition home or self-care (01) ==
PROVIDERS: PCP Internal Medicine; Visit Provider Orthopaedic Surgery
PROC: (CPT 23420; principal; 2020-04-12 09:30)
DX: M75.111 Incomplete rotator cuff tear or rupture of right shoulder, not specified as traumatic (principal); M19.011 Primary osteoarthritis, right shoulder; M75.41 Impingement syndrome of right shoulder; G89.18 Other acute postprocedural pain; I10 Essential (primary) hypertension; D50.9 Iron deficiency anemia, unspecified; E66.9 Obesity, unspecified; Z68.32 Body mass index [BMI] 32.0-32.9, adult
CPT/HCPCS: 23412; 23120; 64415; A4565; A9270; J0690; J1100; J1885; J2250; J2405; J2704; J2710; J3010; J7120

== ENCOUNTER 2020-07-12 08:30 | Outpatient (RCR) | payer BC, SELFPAY ==
--- NOTE | 2020-04-14 09:51 | PTOPEVAL ---
PHYSICAL THERAPY EVALUATION Thank you for referring John Proctor to [facility]. John was evaluated with the dx of right shoulder RCR. The patient is scheduled to be seen for therapy? 2 x/week for 4 weeks. Please review, sign, date and return this plan of care AYAN. I agree with and certify that the following plan of care is medically necessary. 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 Patient had limits of use, trouble sleeping and had surgery to repair shoulder this week. Patient denies left shoulder trouble and is right hand dominant. Patient plans to return to normal activities once healed. Previous Treatments Previous Treatments For This Problem had PT 1 year ago attempting to prevent need for surgery Pain Assessment Timing of Pain Assessment Timing of Pain Assessment Assessment Pain Scale Pain Scale Used Numeric (1 - 10) Self Report Pain Assessment Right Shoulder(s) Reported Pain Level 3 Pain Description Aching Pain Frequency Acute,Chronic Greatest Pain Intensity 10 Pain Aggravating Factors Exercise/Activity Other Pain Aggravating Factors sleeping Pain Score Pain Score 3: Self Report Interventions Used Interventions Used By Clinicians Education,Exercise,Ice Pain Relief Interventions Used By Ice,Medication,Position Change Patient Other Alleviating Interventions pain meds Upper Extremity Range of Motion General Upper Extremity Range of Motion Gross Upper Extremity Range of Motion right shoulder active motion: Comments flexion 157, abduction 171, extension 72, ER 95, IR 85 degrees. Left shoulder passive ER 12', IR 55', elevation 95 degrees Upper Extremity Mus
--- NOTE | 2020-05-14 10:58 | PTOPEVAL ---
PHYSICAL THERAPY REASSESSEMENT Thank you for referring John Proctor to [facility].? The patient was reassessed and progressing as expected with goals being met and ongoing. Plan to continue therapy and is scheduled to be seen for therapy? 2 x/week for 4 weeks. Please review, sign, date and return this plan of care AYAN. I agree with and certify that the following plan of care is medically necessary. Referring Physician Date Attending Provider: Wilmer Chamberlain MD Referring Provider: *PT Outpatient Progress Start: 04/14/20 08:33 Freq: Status: Active Protocol: Document 05/14/20 08:34 MLV (Rec: 05/14/20 09:28 MLV [id number]) Therapy Assessment Status Assessment Status Progress Evaluation Information Problem Diagnosis right RCR Onset 04/12/20 Cause unknown injury about 1 year ago Additional Evaluation Detail Patient reports an improved movement of right arm with daily activities but pain remains worst with rotation motions. Pt reports compliance with HEP and use of ice. Pt is eager to continue progressing to get full use of her arm back. Pain Assessment Timing of Pain Assessment Timing of Pain Assessment Assessment Pain Scale Pain Scale Used Numeric (1 - 10) Self Report Pain Assessment Right Shoulder(s) Reported Pain Level 2 Pain Description Aching Pain Frequency Acute Pain Aggravating Factors Exercise/Activity Pain Behaviors Guarding Pain Score Pain Score 2: Self Report Interventions Used Interventions Used By Clinicians Education,Exercise Pain Relief Interventions Used By Exercise,Ice,Position Change Patient Upper Extremity Range of Motion General Upper Extremity Range of Motion Gross Upper Extremity Range of Motion right shoulder active motions: Comments flexion 84, abduction 80, extension 47 degrees. AAROM ER 52, IR 61 degrees, elevation 145 degrees Upper Extremity Muscle Strength Testing General Upper Extremity Strength Gross Upper Extremity Strength Comments right shoulder 2+/5 all motions for functional motion; able to push isometrically to a 3+/5 PT Clinical Summary Mrs. Proctor continues to improve at right shoulder with increased active and passive
--- NOTE | 2020-06-11 10:47 | PTOPEVAL ---
PHYSICAL THEAPY REASSESSMENT Thank you for referring John Proctor to [facility].? John was reassessed for the dx of right RCR. The patient is scheduled to be seen for therapy? 2 x/week for 4 more weeks. Please review, sign, date and return this plan of care AYAN. I agree with and certify that the following plan of care is medically necessary. Referring Physician Date Attending Provider: Wilmer Chamberlain MD *PT Outpatient Re-Evaluation Start: 04/14/20 08:33 Freq: Status: Active Protocol: Document 06/11/20 10:00 MLV (Rec: 06/11/20 10:42 MLV [id number]) Therapy Assessment Status Assessment Status Assessment Status Progress Evaluation Information Problem Diagnosis right RCR Onset 04/12/20 Cause unknown injury about 1 year ago Additional Evaluation Detail Patient reports reaching much easier and getting strength back. Patient feels reaching behind her back is the hardest and using proper technique for reaching is tough. Pt feels further therapy will be beneficial. Pain Assessment Timing of Pain Assessment Timing of Pain Assessment Assessment Pain Scale Pain Scale Used Numeric (1 - 10) Self Report Pain Assessment Right Shoulder(s) Reported Pain Level 1 Pain Description Aching Pain Frequency Acute Other Pain Description 6 with reach behind back Pain Aggravating Factors Exercise/Activity Pain Score Pain Score 1: Self Report Interventions Used Interventions Used By Clinicians Education,Exercise,Ice,Manual Therapy Techniques Pain Relief Interventions Used By Exercise,Ice Patient Upper Extremity Range of Motion General Upper Extremity Range of Motion Gross Upper Extremity Range of Motion right shoulder active motions: Comments flexion 144', abduction 106', extension 65' degrees. AAROM ER 63', IR 68' degrees, elevation 154 degrees Upper Extremity Muscle Strength Testing General Upper Extremity Strength Gross Upper Extremity Strength Comments right shoulder 3+/5 all motions for functional motion; able to push isometrically to a 4/5 Palpation Assessment Palpation Palpation soft tissue tightness remains at right upper arm and upper trap. Need to continue STM/
--- NOTE | 2020-07-12 09:17 | PTOPEVAL ---
PHYSICAL THERAPY RE-ASSESSMENT Thank you for referring John Proctor to [facility].? John was re-assessed for the dx of right RCR/adhesive capsulitis. The patient is scheduled to continue to be seen for therapy? 2 x/week for 4 weeks. Please review, sign, date and return this plan of care AYAN. I agree with and certify that the following plan of care is medically necessary. Referring Physician Date Attending Provider: Wilmer Chamberlain MD *PT Outpatient Re-Evaluation Start: 04/14/20 08:33 Freq: Status: Active Protocol: Document 07/12/20 08:35 MLV (Rec: 07/12/20 09:17 MLV [id number]) Therapy Assessment Status Assessment Status Assessment Status Progress Evaluation Information Problem Diagnosis right RCR Onset 04/12/20 Cause unknown injury about 1 year ago Additional Evaluation Detail Patient feels she continues to loosen at her shoulder joint but still has a little more to gain. Patient notes trouble with higher reaching activities and putting her bra on without modification of movement. Patient is sleeping well in regards to shoulder symptoms and continues to do her home program. Pain Assessment Pain Scale Pain Scale Used Numeric (1 - 10) Self Report Pain Assessment Right Shoulder(s) Reported Pain Level 0 Radicular Pain Location soreness on occasion and 2 with extreme reach or overactivity Pain Score Pain Score 0: Self Report Interventions Used Interventions Used By Clinicians Mobilization,Manual Therapy Techniques Pain Relief Interventions Used By Exercise,Ice,Massage Patient Modalities Upper Extremity Range of Motion General Upper Extremity Range of Motion Gross Upper Extremity Range of Motion right shoulder active motions: Comments flexion 153', abduction 157', extension 65' degrees. AAROM ER 80', IR 75' degrees, elevation 164 degrees(all improved) Upper Extremity Muscle Strength Testing General Upper Extremity Strength Reason Not Measured WNL/Left Gross Upper Extremity Strength Comments right shoulder 4/5 all motions for functional motion; isometrically a 5/5 (improved) with improved scapulohumeral rhythm
--- NOTE | 2020-07-12 09:28 | PCPTNOTE ---
Addendum entered by Rosita Myrick, PT 07/12/20 10:49: V# is [id number] Original Note: This treatment is being continued on visit number V . Please see documentation on both accounts to view progress. Completed interventions, outcomes, and problems have been marked as Inactive to facilitate the copying of the Care plan routine for recurring accounts.
== END 2020-07-12 10:12 | disposition home or self-care (01) ==
LOC: ANHPT 08:30
PROVIDERS: PCP Internal Medicine; Visit Provider Orthopaedic Surgery
DX: Z48.89 Encounter for other specified surgical aftercare (principal)
CPT/HCPCS: 97014; 97110; 97140; 97162; G0283

== ENCOUNTER 2020-08-11 08:30 | Outpatient (RCR) | payer BC, SELFPAY ==
--- NOTE | 2020-07-12 11:00 | PCPTNOTE ---
The treatment documented on this account is a continuation of the treatment documented on visit number [id number]. Please see documentation on both accounts to view progress. The Plan of Care has been transitioned and updated within the new V#. I have addressed and agree with the discipline specific Problems, Interventions, and Goals for the current certification period. Completed interventions, outcomes, and problems have been marked as Inactive to facilitate the copying of the Care plan routine for recurring accounts.
--- NOTE | 2020-08-11 09:19 | PTOPEVAL ---
PHYSICAL THERAPY DISCHARGE Thank you for referring John Proctor to [facility].? John has completed her therapy for the dx of right RCR/adhesive capsulitis and has met all of her goals. DC PT. Please review, sign, date and return this plan of care AYAN. I agree with and certify the following plan of care. Referring Physician Date Attending Provider: Wilmer Chamberlain MD Referring Provider: *PT Outpatient Discharge Start: 07/12/20 10:51 Freq: Status: Active Protocol: Document 08/11/20 08:33 MLV (Rec: 08/11/20 09:16 MLV [id number]) Therapy Assessment Status Assessment Status Assessment Status Discharge Evaluation Information Problem Additional Evaluation Detail The patient reports great recovery with occasional soreness with certain movements only. The patient is sleeping well and using her arm without limits or modifications as she did prior to shoulder trouble. The patient feels she can continue stretching on her own without difficulty. Pain Assessment Timing of Pain Assessment Timing of Pain Assessment Assessment Self Report Self Report Pain Level 0 Pain Score Pain Score 0: Self Report Upper Extremity Range of Motion General Upper Extremity Range of Motion Reason Not Measured WNL/Left Gross Upper Extremity Range of Motion right shoulder active motions: Comments flexion 161', abduction 164', extension 79' degrees. AAROM ER 87', IR 81' degrees, elevation 171 degrees. All motions improved and without endrange tightnesses Upper Extremity Muscle Strength Testing General Upper Extremity Strength Reason Not Measured WNL/Left Gross Upper Extremity Strength Comments right shoulder 5/5 all motions for functional motion; isometrically a 5/5 with fair+ scapulohumeral rhythm Palpation Assessment Palpation Palpation good capsular mobility at right shoulder with good soft tissue extensibility; 75-100% improvement over time PT Clinical Summary Mrs. Proctor has completed 34 visits for the dx of right shoulder repair with adhesive capsulitis following surgery. The yuliya
== END 2020-08-19 16:53 | disposition home or self-care (01) ==
LOC: ANHPT 08:30
PROVIDERS: PCP Internal Medicine; Visit Provider Orthopaedic Surgery
DX: Z48.89 Encounter for other specified surgical aftercare (principal)
CPT/HCPCS: 97110; 97140

== ENCOUNTER → 2020-09-13 11:11 | Outpatient (CLI) | payer BC, SELFPAY ==
--- NOTE | ~2020-09-13 | XR_ITS ---
EXAMINATION: XR chest 2V DATE: 09/13/2020 11:53 INDICATION: Cough TECHNIQUE: PA and lateral views of the chest are obtained. COMPARISON: 12/20/2015 FINDINGS: The lungs are free of acute opacities. There is no pleural effusion or pneumothorax. The ca rdiomediastinal silhouette is normal. There is mild thoracic spondylosis. IMPRESSION: 1. No acute cardiopulmonary abnormality. Reviewed, dictated and finalized at location B.
== END ==
PROVIDERS: PCP Internal Medicine; Visit Provider Physician Assistant
DX: R05 Cough (principal)
CPT/HCPCS: 71046

== ENCOUNTER 2020-09-27 09:00 | Outpatient (CLI) | payer BC, SELFPAY ==
--- NOTE | ~2020-09-27 | NM_ITS ---
Corrected Report Examination name changed. -[facility] [id number] EXAMINATION: NM stress w perf spect multi EXAM DATE: 09/27/2020 11:42 INDICATION: Shortness of breath. TECHNIQUE: Rest images were obtained following intravenous administration of 8.5 mCi Tc99m tetrofosmin (Myoview). The patient was infused intravenously with Lexiscan (regadenoson). Then, 25.2 mCi Tc99m tetrofosmin (Myoview) was administered intravenously, and stress images were obtained. Data was reconstructed into short axis and horizontal and vertical long axis SPECT images. Gated SPECT images were also obtained. There is no prior study for comparison. FINDINGS: There is no reversible or fixed perfusion abnormality to suggest ischemia or infarction. There is normal left ventricular wall motion. End diastolic volume: 25 mL. End-systolic volume: 4 mL. Left ventricular ejection fraction: 84%. IMPRESSION: 1. Normal myocardial perfusion at rest and during stress. 2. Left ventricular ejection fraction measuring 84%. Reviewed, dictated and finalized at location A. MTDD
--- NOTE | 2020-09-27 09:22 | EST_ITS ---
Patient Info Name: John Proctor Age: 50 years : 1970 Gender: Female Ht: 64 in Wt: 195 lbs BSA: 2.03 m2 Exam Date: 09/27/2020 10:41 AM Exam Location: [facility] Stress Patient Status: Outpatient Admit Date: 09/27/2020 Staff Ordering Physician: Fili Lagos PA-C Attending Provider: Fili Lagos PA-C Exercise Technologist: Chanda Garg RDCS Exercise Physician: Maurizio Mcfadden DO Exam Type: CA stress test treadmill w NM Study Info Indications R06.02 - Shortness of breath A nuclear stress test was performed. Summary 1. 1. Negative Eduardo exercise stress test for ischemic ST changes by ECG criteria. 2. 2. Reduced functional capacity, achieving 7 METs of workload. 3. 3. Baseline hypertension with hypertensive response to exercise. 4. 4. Appropriate HR response to exercise. 5. 5. Appropriate HR recovery at 1 minute post exercise. 6. 6. Nuclear scan to follow and will be reported separately. Please correlate with it. Protocol: Eduardo Stress ECG Details Stage: REST Duration (min): 0 min : 57 sec Speed (mph): 0.0 Grade (%): 0 HR (bpm): 78 SBP (mmHg): 135 DBP (mmHg): 92 METS: --- Stage: REST Duration (min): 5 min : 33 sec Speed (mph): 0.0 Grade (%): 0 HR (bpm): 90 SBP (mmHg): 135 DBP (mmHg): 92 METS: --- Stage: STAGE 1 Duration (min): 1 min : 0 sec Speed (mph): 1.7 Grade (%): 10 HR (bpm): 108 SBP (mmHg): 135 DBP (mmHg): 92 METS: --- Stage: STAGE 1 Duration (min): 2 min : 0 sec Speed (mph): 1.7 Grade (%): 10 HR (bpm): 123 SBP (mmHg): 135 DBP (mmHg): 92 METS: --- Stage: STAGE 1 Duration (min): 3 min : 0 sec Speed (mph): 1.7 Grade (%): 10 HR (bpm): 123 SBP (mmHg): 165 DBP (mmHg): 94 METS: --- Stage: STAGE 2 Duration (min): 1 min : 0 sec Speed (mph): 2.5 Grade (%): 12 HR (bpm): 137 SBP (mmHg): 165 DBP (mmHg): 94 METS: --- Stage: STAGE 2 Duration (min): 2 min : 0 sec Speed (mph): 2.5 Grade (%): 12 HR (bpm): 149 SBP (mmHg): 165 DBP (mmHg): 94 METS: --- Stage: STAGE 2 Duration (min): 3 min : 0 sec Speed (mph): 2.5 Grade (%): 12 HR (bpm): 153 SBP (mmHg): 165 DBP (mmHg): 94 METS: --- Stage: RECOVERY Duration (min): 0 min : 59 sec Speed (mph): 0.0 Grade (%): 0 HR (bpm): 130 SBP (mmHg): 232 DBP (mmHg): 140 METS: --- Stage: RECOVERY Duration (min): 1 min : 59 sec Speed (mph): 0.0 Grade (%): 0 HR (bpm): 112 SBP (mmHg): 208 DBP (mmHg): 124 METS: --- Stage: RECOVERY Duration (min): 2 min : 59 sec Speed (mph): 0.0 Grade (%): 0 HR (bpm): 101 SBP (mmHg): 189 DBP (mmHg): 89 METS: --- Stage: RECOVERY Duration (min): 3 min : 59 sec Speed (mph): 0.0 Grade (%): 0 HR (bpm): 107 SBP (mmHg): 189 DBP (mmHg): 89 METS: ---
== END 2020-09-27 09:01 | disposition home or self-care (01) ==
PROVIDERS: PCP Internal Medicine; Visit Provider Physician Assistant
DX: R06.02 Shortness of breath (principal)
CPT/HCPCS: 78452; 93017; A9502

== ENCOUNTER 2020-10-12 14:07 | Outpatient (CLI) | payer BC, SELFPAY ==
--- NOTE | 2020-10-16 21:39 | WPDPFTINT ---
PFT Procedure Performed PFT Procedure Performed Spirometry with Pre/Post Bronchodilator Plethysmography (Lung Vol) Diffusing Cap (DLCO) Flow Vol Loop PFT Interpretation DOS: 10/12/2020 REQUESTING: Fili Lagos PA-C REASON FOR TESTING: Shortness of breath PULMONARY FUNCTION TESTS Results are reliable and reproducible Spirometry: FEV1 100% predicted, 2.78 L. FVC 96% predicted. The FEV1/FVC ratio is normal 83%. There was no change after bronchodilator administration. Lung volumes: Total lung capacity 87% predicted, normal. Residual volume is 60% predicted. This is normal. RV/TLC is 24%, no air trapping. Airway resistance 216%, increased. Diffusion: DLCO is 73%, mildly decreased. Flow volume loop: Normal. IMPRESSION: Normal spirometry and, lung volumes, minimal decrease in diffusion. Moni Xie MD
== END 2020-10-12 14:08 | disposition home or self-care (01) ==
LOC: ANHPFT 14:08
PROVIDERS: PCP Internal Medicine; Visit Provider Physician Assistant
DX: R06.02 Shortness of breath (principal)
CPT/HCPCS: 94060; 94726; 94729

== ENCOUNTER → 2020-12-16 14:40 | Outpatient (CLI) | payer BC, SELFPAY ==
--- NOTE | ~2020-12-16 | US_ITS ---
EXAMINATION: US thyroid DATE: 12/16/2020 14:57 INDICATION: Localized swelling, mass, and lump, neck. TECHNIQUE: Multiple ultrasound images of the thyroid were obtained. COMPARISON: None. FINDINGS: The right thyroid lobe measures 4.0 x 1.9 x 1.2 cm. The left thyroid lobe measures 3.4 x 0.9 x 1.4 c m. There is normal echotexture and echogenicity throughout the thyroid gland. No discrete nodules id entified. Normal vascular flow is present. IMPRESSION: 1. Normal thyroid. Reviewed, dictated and finalized at location A. PROTECTION FABRICATOR IMPRESSION: 1. Normal thyroid.
== END ==
PROVIDERS: PCP Internal Medicine; Visit Provider Internal Medicine
DX: R22.1 Localized swelling, mass and lump, neck (principal)
CPT/HCPCS: 76536

== ENCOUNTER 2021-04-05 12:17 | Emergency (ER) | payer BC, SELFPAY ==
--- NOTE | 2021-04-05 12:21 | ED.URI ---
HPI - URI/Sore Throat General Chief Complaint: Upper Respiratory Infection Stated Complaint: Tired,Cough Time Seen by Provider: 04/05/21 12:22 Source: patient, family, RN notes reviewed and old records reviewed Mode of arrival: ambulatory Limitations: no limitations History of Present Illness HPI Narrative: 50-year-old female presents to the [facility] with a cough since August, states she has had pulmonary function tests and could not find anything wrong. States she has had increased fatigue for a couple of weeks, had an appointment that was canceled last with her primary care provider. Patient reports for the last week or so she has not been feeling great. Was not any better today and when she tried to call her primary care provider was told to go to the [facility] [place] or the ER. Patient thought it could be higher iron levels. Discussed with patient that we do not do labs here and is important to follow-up with your primary care provider for chronic conditions MD elicited complaint: cough Related Data Home Medications Medication Instructions Recorded Confirmed azelastine 205.5 mcg (0.15 %) 2 spray NASAL DAILY PRN 06/24/19 04/05/21 nasal spray fexofenadine-pseudoephedrine ER 1 tablet PO DAILY PRN 06/24/19 04/05/21 180 mg-240 mg tablet,ext.release 24 hr fluticasone propionate 50 2 spray NASAL DAILY PRN 06/24/19 04/05/21 mcg/actuation nasal spray,suspension Allergies Allergy/AdvReac Type Severity Reaction Status Date / Time No Known Allergies Allergy Verified 04/05/21 12:31 Review of Systems Review of Systems: All systems reviewed & are unremarkable except as noted in HPI and below Constitutional: Constitutional: Reports as per HPI, Denies chills, Reports fatigue, Denies fever(s), Denies headache(s) and Reports weakness Eyes: Eyes: Reports no additional eye complaints ENT: Reports as per HPI, Denies vertigo, Denies dizziness, Denies headache(s), Denies nasal congestion and Denies sore throat Cardiovascular: Cardiovascular: Reports no additional cardiovascular complaints, Denies chest pain, Denies syncope, Denies rapid heart rate and Denies dyspnea Respiratory: Respiratory: Reports as per HPI, Reports cough, Reports dyspnea and Denies wheezing Gastrointestinal: Gastrointestinal: Reports no additional gastrointestinal complaints, Denies abdominal pain, Denies diarrhea, Denies nausea and Denies vomiting Musculoskeletal: Musculoskeletal: Reports no additional musculoskeletal complaints and Denies numbness Integumentary/Breasts: Skin/Breast: Reports system reviewed and no additional complaints, except as docu Neurologic: Reports system reviewed and no additional complaints, except as documented, Denies vertigo, Denies dizziness, Denies syncope, Denies headache(s), Denies focal weakness and Denies numbness Psychiatric: Psychiatric: Reports no additional psychiatric complaints Allergic/Immunologic: Allergic/Immunologic: Reports no additional allergic/immunologic complaints and Denies wheezing PMFSH Past Medical History Medical History Anemia Hypertension Iron deficiency anemia Migraine Surgical History Surgical History H/O tubal ligation H/O: hysterectomy History of cholecystectomy Right rotator cuff tear Right rotator cuff repair with DCE April 2020 Family History Family History Grandparent Carcinoma of colon Family history of elevated blood lipids Mother Diabetes mellitus Sibling Patient's brother is in good health Father Family history of cardiovascular disease Social History Social History Smoking status: Never smoker Second hand tobacco smoke exposure: No Alcohol intake: current Alcohol use details: COUPLE DRINKS/MONTH Substance use: never Substanc
[2021-04-05 12:25] VITALS: BP 128/72; PULSE 72; RESP 18; TEMP 37.1; O2SAT 99
== END 2021-04-05 12:36 | disposition home or self-care (01) ==
PROVIDERS: Emergency Provider Nurse Practitioner; PCP Internal Medicine
DX: R05.9 Cough, unspecified (principal); R53.83 Other fatigue; I10 Essential (primary) hypertension
CPT/HCPCS: 99211; G0463

== ENCOUNTER → 2021-04-16 00:25 | Outpatient (CLI) | payer BC, SELFPAY ==
[2021-04-16 13:19] LABS: SARS-CoV-2 RNA PCR Negative
== END ==
PROVIDERS: PCP Internal Medicine; Visit Provider Physician Assistant
DX: R68.89 Other general symptoms and signs (principal); Z20.822 Contact with and (suspected) exposure to COVID-19
CPT/HCPCS: C9803; U0003; U0005

== ENCOUNTER 2021-08-03 15:00 | Outpatient (CLI) | payer BC, SELFPAY ==
--- NOTE | ~2021-08-03 | MM_ITS ---
EXAMINATION: MM screening jonathan BI w yosi HISTORY: Screening TECHNIQUE: Craniocaudal and mediolateral oblique 3-D tomosynthesis images were obtained and synthetic 2-D images were generated. CAD analysis was submitted and interpreted. COMPARISON: Comparison to multiple prior studies sequentially, with oldest reviewed study dated 06/16. BREAST PARENCHYMAL COMPOSITION: There are scattered areas of fibroglandular density. FINDINGS: There is no evidence of suspicious mass, calcification, or architectural distortion to sugg est malignancy in either breast. There has been no suspicious interval change. IMPRESSION: 1. No mammographic evidence of malignancy. 2. Recommend routine screening mammography in one year. BI-RADS Category 1: Negative Reviewed, dictated and finalized at location A.
== END 2021-08-03 15:01 | disposition home or self-care (01) ==
PROVIDERS: PCP Internal Medicine; Visit Provider Obstetrics & Gynecology
DX: Z12.31 Encounter for screening mammogram for malignant neoplasm of breast (principal)
CPT/HCPCS: 77063; 77067

== ENCOUNTER 2022-03-16 13:08 | Outpatient (CLI) | payer BC, SELFPAY ==
--- NOTE | ~2022-03-16 | XR_ITS ---
EXAMINATION: XR chest 2V DATE: 03/16/2022 13:27 INDICATION: Cough, unspecified TECHNIQUE: Frontal and lateral views of the chest are obtained COMPARISON: 09/13/2020 FINDINGS: The lungs are free of acute opacities. No pleural effusion or pneumothorax. The cardiomedia stinal silhouette is normal. There is mild thoracic spondylosis. Surgical clips in the right upper qu adrant are likely from prior cholecystectomy. IMPRESSION: 1. No acute cardiopulmonary abnormality. Reviewed, dictated and finalized at location L. NG MACHINE OPERATOR
== END 2022-03-16 13:09 | disposition home or self-care (01) ==
PROVIDERS: PCP Internal Medicine; Visit Provider Physician Assistant
DX: R05.9 Cough, unspecified (principal)
CPT/HCPCS: 71046

== ENCOUNTER 2022-03-19 11:32 | Emergency (ER) | payer BC, SELFPAY ==
--- NOTE | ~2022-03-19 | XR_ITS ---
XR chest 2V DATE: 03/19/2022 11:59 INDICATION: Productive cough for 3 weeks. Nonsmoker. TECHNIQUE: 2 views COMPARISON: March 16, 2022 2 view chest FINDINGS: Normal heart size. Minimal aortic unfolding. No hilar or mediastinal enlargement. No pulmon soheila infiltrate or consolidation, pleural effusion or pulmonary vascular congestion or pneumothorax is detected. Status post cholecystectomy. IMPRESSION: No active cardiopulmonary disease Reviewed, dictated and finalized at location A. UCTION CONTROL EXPERT
--- NOTE | 2022-03-19 11:35 | ED.URI ---
HPI - URI/Sore Throat General Chief Complaint: Upper Respiratory Infection Stated Complaint: cough Time Seen by Provider: 03/19/22 11:40 Source: patient and RN notes reviewed Mode of arrival: ambulatory Limitations: no limitations History of Present Illness HPI Narrative: 51-year-old female presents with concern for 3 week history productive cough, nasal congestion, sinus pressure. She reports symptoms have worsened over last week. She reports she started having pain in her right posterior chest with coughing. She reports taking [id number] medications with little relief. She has been using albuterol inhaler she has at home with little relief. MD elicited complaint: cough and sinus pain Related Data Home Medications Medication Instructions Recorded Confirmed azelastine 205.5 mcg (0.15 %) 2 spray intranasal DAILY PRN 06/24/19 02/10/22 nasal spray Allergy Symptoms fexofenadine-pseudoephedrine ER 1 tablet PO DAILY PRN Allergy 06/24/19 02/10/22 180 mg-240 mg tablet,ext.release Symptoms 24 hr (Pippa-D 24 Hour) fluticasone propionate 50 2 spray intranasal DAILY PRN 06/24/19 02/10/22 mcg/actuation nasal Allergy Symptoms spray,suspension (Flonase Allergy Relief) Allergies Allergy/AdvReac Type Severity Reaction Status Date / Time No Known Allergies Allergy Verified 03/19/22 11:34 Review of Systems Review of Systems: CONSTITUTIONAL: Reports malaise. Denies chills, sweats, or fever. EYES: Denies visual changes, redness, or discharge. ENT: Reports rhinorrhea, congestion, sinus pain. Denies otalgia and sore throat. CARDIOVASCULAR: Denies chest pain, palpitations, or edema. RESPIRATORY: Reports productive cough, situation dyspnea, pain at the right posterior chest GASTROINTESTINAL: Denies abdominal pain, nausea, vomiting, diarrhea SKIN: Denies rash or itching. MUSCULOSKELETAL: Denies myalgia. NEUROLOGIC: Denies headache. All systems reviewed & are unremarkable except as noted in HPI and below PMFSH Past Medical History Medical History Anemia Chronic sinusitis Hypertension Iron deficiency anemia Irritable bowel syndrome with diarrhea Migraine Surgical History Surgical History H/O tubal ligation H/O: hysterectomy History of cholecystectomy Right rotator cuff tear Right rotator cuff repair with DCE April 2020 Family History Family History Grandparent Carcinoma of colon Family history of elevated blood lipids Mother Diabetes mellitus Sibling Patient's brother is in good health Father Family history of cardiovascular disease Social History Social History (Updated 02/10/22 @ 09:43 by Andrea Merino MA) Smoking status: Never smoker Second hand tobacco smoke exposure: No Alcohol intake: current Alcohol use details: COUPLE DRINKS/MONTH Substance use: never Substance use type: does not use Lack of Transportation: No Lack of Food: Never True Current Housing: I Have Housing Concerned About Future Housing: No Difficulty Paying Gas/Electric Bills: No Difficulty Paying for Meds: No Currently Unemployed: No Education: Associate Degree Difficulty w/ Childcare or Family Care: No Living arrangements: with family Additional living arrangements comments: AND CHILDREN Occupation/Education: occupation Additional occupation/education comments: [employer] Gender identity (if verbalized by the patient): Female Sexual Orientation (if Verbalized by the Patient): Straight or Heterosexual Spiritual care concerns: No Comments At time of signature, agree with nursing past medical, surgical, social and family history. There is no relevant family history pertinent to the presenting complaint Exam Narrative: GENERAL: Well-appearing, well-nourished, and in no acute distress. HEAD: Normo
[2022-03-19 11:41] VITALS: BP 138/77; PULSE 73; RESP 16; TEMP 36.8; O2SAT 100
== END 2022-03-19 12:27 | disposition home or self-care (01) ==
PROVIDERS: Emergency Provider Nurse Practitioner; PCP Internal Medicine
DX: J32.9 Chronic sinusitis, unspecified (principal); J40 Bronchitis, not specified as acute or chronic; I10 Essential (primary) hypertension
CPT/HCPCS: 71046; 99213; G0463

== ENCOUNTER 2023-11-29 14:08 | Outpatient (CLI) | payer BC, SELFPAY ==
--- NOTE | 2023-11-29 | ECG_ITS ---
Test Date: 2023-11-29 14:27:56 Measurements Intervals Independence Rate: 64 P: 0 ID: [id number] QRS: -7 QRSD: 82 T: 22 QT: 401 QTc: 415 Interpretive Statements SINUS RHYTHM LOW QRS VOLTAGE IN PRECORDIAL LEADS [QRS DEFLECTION < 1.0 mV IN CHEST LEADS] POOR R WAVE PROGRESSION No previous ECG available for comparison Electronically Signed On 11-29-2023 15:33:12 CDT by Ubaldo Parker M.D.
== END 2023-11-29 14:09 | disposition home or self-care (01) ==
PROVIDERS: PCP Internal Medicine; Visit Provider Podiatrist Foot & Ankle Surgery
DX: R03.0 Elevated blood-pressure reading, without diagnosis of hypertension (principal)
CPT/HCPCS: 93005

== ENCOUNTER 2023-12-25 14:24 | Outpatient (RCR) | payer BC, SELFPAY ==
--- NOTE | 2023-12-25 15:24 | OPREHPOC ---
Outpatient Therapy Plan of Care This is a Multidisciplinary Plan of Care that may contain components documented by all disciplines (PT, OT, and ST.) PT Problem 1 PT Problem #1 Knowledge Deficit PT Goal 1 Goal / Goal Update *indep with HEP * pt able to voice understanding of vestibular education Target Visit 6 PT Problem 2 PT Problem #2 Impaired Vestibular Syste PT Goal 1 Goal / Goal Update pt able to perform without any vestibular issues , to improve activity level and mobility: 1* roll R/L 2* supine/sit transfer 3* walking 50' with head motions R/L 3x each 4* occulomotor testing in standing Target Visit 6
--- NOTE | 2023-12-25 15:24 | PTOPEVAL1 ---
Assessment and note entered by Jena Ayala, PT Evaluation Information Assessment Status Evaluation ICD-10 Condition Codes (PT) Dizziness & Giddiness R42 Onset Oct 2023 Subjective Information had some dizziness onset after taking gabapentin, thought it was the cause, so stopped taking it and dizziness continued; less issues now, barely have any problems with dizziness. do not have a history of dizziness issues. last episode of dizziness about 1 & 1/2 wk ago- standing and doing house work, eased in few minutes; Originally had dizziness when driving, walking in store and lasted 20-30 minutes. Reported Pain Level Pain Score 0: Self Report Assessment PT Clinical Summary John has the diagnosis of dizziness. She reports her symptoms are less and almost resolved. Dizziness Handicap Index rating of 20% limitation in activity. Symptoms increase with head motions --driving and grocery shopping. History includes: sinus issues with daily meds and sinus surgery. With the vestibular testing: BPPV and occulomotor testing did not elicit any symptoms, except supine to sitting position change with short duration to clear. With Twain Abreu [place] to R reported sinus pressure. With the eye tracking, she had slight decrease in smoothness of eye tracking but did not have any symptoms. Education to pt and issued handouts for basic vestibular system info, BPPV, her risk factors for dizziness issues with sinus problems; Mir Albarran to perform if she does have symptoms in the future and eye tracking exercises to improve smoothness of eye motions. Skilled PT services are indicated to improve vestibular system and assess for changes as progress activity. Plan of Care Interventions Neuro Re-education,Patient/Caregiver Education, Therapeutic Activities,Therapeutic Exercise PT Services Indicated Yes Treatment Frequency and 1-2x/wk for 6 visits Duration These treatments will address the objective and functional deficits as defined above. The patient will be advanced safely and appropriately in order for the patient to progress towards his/her prior level of function. Additional exercises will be introduced and as well as a comprehensive home exercise program upon discharge, if needed, ?to ensure carryover of functional gains achieved in the clinic. This treatment plan has been reviewed and agreement upon by the patient.
--- NOTE | 2024-01-29 08:33 | PTOPDC ---
Assessment and note entered by Jena Ayala, PT Assessment Status Discharge - Pt Not Present ICD-10 Condition Codes (PT) Dizziness and Giddiness R42 Onset Oct 2023 Subjective Information pt was not seen this date. Assessment PT Clinical Summary John received the PT evaluation on December 24 for vestibular therapy. Education was completed and she was to call if she needed any additional therapy. She did not make any further appointments. Discharge PT services. The goals were not addressed. Plan of Care PT Services Indicated No
== END 2024-01-29 12:58 | disposition home or self-care (01) ==
LOC: ANHPT 14:24
PROVIDERS: PCP Internal Medicine; Visit Provider Internal Medicine
DX: R42 Dizziness and giddiness (principal)
CPT/HCPCS: 97110; 97161; 97530